=== PATIENT | male | born 1975 | race Caucasian/White ===

== ENCOUNTER 2017-06-19 08:49 | Emergency (ER) | payer OTHER ==
[2017-06-19 08:50] VITALS: BMI 27.2
[2017-06-19 08:55] VITALS: RESP 17; TEMP 98.7
--- NOTE | 2017-06-19 09:12 | ED PDOC ---
Arrival/HPI - General Chief Complaint: ENT Problem Time Seen by Provider: 06/19/17 09:10 Historian: Patient - History of Present Illness Narrative History of Present Illness (Text): 06/19/17 09:13 Fuentes Shell is a 41 year old male, who presents to the emergency department complaining of a sore throat for the past 3 days. Additionally patient complaints of subjective fever. Patient denies any shortness of breath, chest pain or other complaints. Time/Duration: < week (3 days) Symptom Onset: Sudden Past Medical History - Provider Review Nursing Documentation Reviewed: Yes - Past History Past History: No Previous - Infectious Disease Hx of Infectious Diseases: None - Tetanus Immunization Tetanus Immunization: Unknown - Past Medical History Past Medical History: No Previous - Cardiac Hx Cardiac Disorders: Yes - Pulmonary Hx Respiratory Disorders: No - Neurological Hx Neurological Disorder: No - HEENT Hx HEENT Disorder: No - Renal Hx Renal Disorder: No - Endocrine/Metabolic Hx Endocrine Disorders: No - Hematological/Oncological Hx Blood Disorders: No - Integumentary Hx Dermatological Disorder: No - Musculoskeletal/Rheumatological Hx Musculoskeletal Disorders: No - Gastrointestinal Hx Gastrointestinal Disorders: No - Genitourinary/Gynecological Hx Genitourinary Disorders: No - Psychiatric Hx Psychophysiologic Disorder: No Hx Depression: No Hx Emotional Abuse: No Hx Physical Abuse: No Hx Substance Use: No - Past Surgical History Past Surgical History: No Previous - Surgical History Hx Appendectomy: Yes (@17 years old) - Anesthesia Hx Anesthesia: Yes Hx Anesthesia Reactions: No Hx Malignant Hyperthermia: No - Suicidal Assessment Feels Threatened In Home Enviroment: No Family/Social History - Physician Review Nursing Documentation Reviewed: Yes Family/Social History: Unknown Family HX Smoking Status: Never Smoked Hx Alcohol Use: No Hx Substance Use: No Allergies/Home Meds Allergies/Adverse Reactions: Allergies No Known Allergies Allergy (Verified 06/19/17 08:55) Home Medications: Home Meds Medication Instructions Recorded Confirmed Azithromycin [Zithromax] 500 mg PO DAILY 06/19/17 06/19/17 Loratadine [Claritin] 10 mg PO DAILY PRN 06/19/17 06/19/17 Review of Systems - Review of Systems Constitutional: Fevers ENT: Sore Throat Respiratory: absent: SOB Cardiovascular: absent: Chest Pain Gastrointestinal: absent: Abdominal Pain Physical Exam - Physical Exam Narrative Physical Exam (Text): 06/19/17 Constitutional: No acute distress. Head: Normocephalic. Atraumatic. Eyes: PERRL. ENT: Moist mucous membranes. Erythematous pharynx. +Exudates. Neck: Supple. No nuchal rigidity. Cardiovascular: Regular rate. Chest: No tenderness. Respiratory: Clear to auscultation bilaterally. No stridor. GI: Soft. Nontender. Nondistended. Back: No CVA tenderness. Musculoskeletal: No tenderness or swelling of extremities. Skin: No rash. Neurologic: Alert, no focal deficit. Vital Signs Reviewed: Yes Vital Signs Temp Pulse Resp BP Pulse Ox 06/19/17 08:53 98.7 F 92 H 17 109/71 100 Temperature: Afebrile Blood Pressure: Normal Pulse: Regular Respiratory Rate: Normal Appearance: Positive for: Well-Appearing, Non-Toxic, Comfortable Pain Distress: None Mental Status: Positive for: Alert and Oriented X 3 Medical Decision Making ED Course and Treatment: 06/19/17 Impression: 41 year old male with erythematous pharynx. Patient is afebrile. Plan: -- Amoxicillin, Decadron, and Toradol -- Reassess and disposition Progress Notes: Reevaluation: On reevaluation the patient feels better and is in no acute distress. I have discussed the results and plan with the patient, who expresses understanding. Patient given the opportunity to ask question, all questions were answered and there is agreement with the plan to discharge the patient home. Patient is stable for discharge. Patient was instructed to follow up with physician/clinic in 1-2 days or return if symptoms persist/worsen or new concerning symptoms arise. - Lab Interpretations I have reviewed the lab results: Yes - Medication Orders Current Medication Orders: Discontinued Medications Amoxicillin (Amoxil 500 Mg Cap) 1,000 mg PO STAT STA PRN Reason: Protocol Stop: 06/19/17 09:13 Last Admin: 06/19/17 09:21 Dose: 1,000 mg Dexamethasone (Decadron Inj) 10 mg IM STAT STA Stop: 06/19/17 09:13 Last Admin: 06/19/17 09:22 Dose: 10 mg IM Administration Charges Document 06/19/17 09:22 SF (Rec: 06/19/17 09:22 SF [email or web address] Injection Site MAR Injection Site Left Deltoid Charges for Administration # of IM Administrations 1 Ketorolac Tromethamine (Toradol) 60 mg IM STAT STA Stop: 06/19/17 09:13 Last Admin: 06/19/17 09:22 Dose: 60 mg MAR Pain Assessment Document 06/19/17 09:22 SF (Rec: 06/19/17 09:22 SF [email or web address] Pain Reassessment Is this a pain reassessment? Yes Sleep Is patient sleeping during reassessment? No Location Pain Location Body Site Throat IM Administration Charges Document 06/19/17 09:22 SF (Rec: 06/19/17 09:22 SF [email or web address] Injection Site MAR Injection Site Right Deltoid Charges for Administration # of IM Administrations 1 - Scribe Statement The provider has reviewed the documentation as recorded by the Chin Issa Provider Scribe Attestation: All medical record entries made by the Scribe were at my direction and personally dictated by me. I have reviewed the chart and agree that the record accurately reflects my personal performance of the history, physical exam, medical decision making, and the department course for this patient. I have also personally directed, reviewed, and agree with the discharge instructions and disposition. Disposition/Present on Arrival - Present on Arrival Any Indicators Present on Arrival: No History of DVT/PE: No History of Uncontrolled Diabetes: No Urinary Catheter: No History of Decub. Ulcer: No History Surgical Site Infection Following: None - Disposition Have Diagnosis and Disposition been Completed?: Yes Diagnosis: Strep throat Disposition: HOME/ ROUTINE Disposition Time: 09:10 Patient Plan: Discharge Patient Problems: Current Active Problems Problem Status Onset Strep throat Acute Condition: STABLE Discharge Instructions (ExitCare): Strep Throat (ED) Prescriptions: Amoxicillin 875 mg PO BID #19 tablet Dexamethasone [Decadron] 5 tab PO ONCE #5 tab Ibuprofen [Motrin] 600 mg PO Q6 #25 tab Referrals: PCP,NO [Primary Care Provider] - Follow up with primary Forms: [facility] (German), WORK NOTE
[2017-06-19 10:19] VITALS: BP 111/75; PULSE 91; O2SAT 98
== END 2017-06-19 09:50 | disposition home or self-care (01) ==
LOC: ED 08:49
DX: J02.0 Streptococcal pharyngitis (principal)
CPT/HCPCS: 96372; 99283; J1100; J1885

== ENCOUNTER 2017-10-29 05:36 | Emergency (ER) | payer OTHER ==
[2017-10-29 05:48] VITALS: RESP 18; TEMP 98.2
[2017-10-29 05:51] VITALS: BMI 28.7
--- NOTE | 2017-10-29 06:00 | ED PDOC ---
Arrival/HPI - General Chief Complaint: Chest Pain Time Seen by Provider: 10/29/17 05:52 Historian: Patient - History of Present Illness Narrative History of Present Illness (Text): 10/29/17 05:57 42 year old male, with no significant past medical history, presents to the emergency department complaining of intermittent chest pain that began yesterday and again this morning after waking up. Patient finds it difficult to describe the quality. Patient point to the left side of his chest, but denies any radiation, or associated shortness of breath. He denies any cardiac family history, any history of exertional chest pain, or dyspnea on exertion. Patient denies any fever, chills, shortness of breath, abdominal pain, nausea, vomiting , diarrhea, urinary symptoms, back pain, neck pain, headache, dizziness, or any other complaints. Time/Duration: 24 hours Symptom Course: Intermittent Activities at Onset: Light Context: Home Past Medical History - Provider Review Nursing Documentation Reviewed: Yes - Past History Past History: No Previous - Infectious Disease Hx of Infectious Diseases: None - Tetanus Immunization Tetanus Immunization: Unknown - Past Medical History Past Medical History: No Previous - Cardiac Hx Cardiac Disorders: No - Pulmonary Hx Respiratory Disorders: No - Neurological Hx Neurological Disorder: No - HEENT Hx HEENT Disorder: No - Renal Hx Renal Disorder: No - Endocrine/Metabolic Hx Endocrine Disorders: No - Hematological/Oncological Hx Blood Disorders: No - Integumentary Hx Dermatological Disorder: No - Musculoskeletal/Rheumatological Hx Musculoskeletal Disorders: No - Gastrointestinal Hx Gastrointestinal Disorders: No - Genitourinary/Gynecological Hx Genitourinary Disorders: No - Psychiatric Hx Psychophysiologic Disorder: No Hx Depression: No Hx Emotional Abuse: No Hx Physical Abuse: No Hx Substance Use: No - Past Surgical History Past Surgical History: No Previous - Surgical History Hx Appendectomy: Yes (@17 years old) - Anesthesia Hx Anesthesia: Yes Hx Anesthesia Reactions: No Hx Malignant Hyperthermia: No - Suicidal Assessment Feels Threatened In Home Enviroment: No Family/Social History - Physician Review Nursing Documentation Reviewed: Yes Family/Social History: No Known Family HX. denies: CAD/AL Smoking Status: Never Smoked Hx Alcohol Use: No Hx Substance Use: No Allergies/Home Meds Allergies/Adverse Reactions: Allergies No Known Allergies Allergy (Verified 06/19/17 08:55) Home Medications: Home Meds Medication Instructions Recorded Confirmed No Known Home Med 10/29/17 10/29/17 Review of Systems - Physician Review All systems were reviewed & negative as marked: Yes - Review of Systems Constitutional: absent: Fevers, Other (Chills) Respiratory: absent: SOB Cardiovascular: Chest Pain. absent: DC Gastrointestinal: absent: Abdominal Pain, Diarrhea, Nausea, Vomiting Genitourinary Male: absent: Dysuria, Frequency, Hematuria Musculoskeletal: absent: Back Pain, Neck Pain Neurological: absent: Headache, Dizziness Physical Exam Vital Signs Reviewed: Yes Vital Signs Temp Pulse Resp BP Pulse Ox 10/29/17 05:48 98.2 F 80 18 115/62 95 Temperature: Afebrile Blood Pressure: Normal Pulse: Regular Respiratory Rate: Normal Appearance: Positive for: Well-Appearing, Non-Toxic, Comfortable Pain Distress: None Mental Status: Positive for: Alert and Oriented X 3 - Systems Exam Head: Present: Atraumatic, Normocephalic Pupils: Present: PERRL Extroacular Muscles: Present: EOMI Conjunctiva: Present: Normal Mouth: Present: Moist Mucous Membranes Neck: Present: Normal Range of Motion. No: Meningeal Signs, MIDLINE TENDERNESS , Paraspinal Tenderness Respiratory/Chest: Present: Clear to Auscultation, Good Air Exchange. No: Respiratory Distress, Accessory Muscle Use Cardiovascular: Present: Regular Rate and Rhythm, Normal S1, S2. No: Murmurs Abdomen: Present: Normal Bowel Sounds. No: Tenderness, Distention, Peritoneal Signs Back: Present: Normal Inspection Upper Extremity: Present: Normal Inspection. No: Cyanosis, Edema Lower Extremity: Present: Normal Inspection. No: Edema Neurological: Present: GCS=15, CN II-XII Intact, Speech Normal Skin: Present: Warm, Dry, Normal Color. No: Rashes Psychiatric: Present: Alert, Oriented x 3, Normal Insight, Normal Concentration Medical Decision Making ED Course and Treatment: 10/29/17 06:02 Impression: 42 year old male presents complaining of intermittent chest pain that began yesterday and again this morning after waking up. Plan: -- Labs -- EKG -- Chest X-ray -- Aspirin -- Reassess and disposition Progress Notes: 10/29/17 06:44 CXR Impression: As read by me, no acute process. EKG shows NSR at 81 BPM with no acute changes. Interpreted by me. 10/29/17 06:59 Recommended admission to the patient but refused to stay.Understands risks as explained including the possibility of undiagnosed cardia disease.Pt. to sign out against medical advice, - Lab Interpretations Lab Results: 10/29/17 06:10 10/29/17 06:10 Lab Results 10/29/17 06:10: PT 10.7, INR 0.93, APTT 27.7, D-Dimer, Quantitative < 200 10/29/17 06:10: WBC 5.2, RBC 4.62, Hgb 14.0, Hct 42.0, MCV 90.9, MCH 30.3, MCHC 33.3, RDW 13.5, Plt Count 176, MPV 10.0 10/29/17 06:10: Sodium 140, Potassium 3.7, Chloride 104, Carbon Dioxide 28, Anion Gap 12, BUN 16, Creatinine 0.8, Est GFR ( Amer) > 60, Est GFR (Non- Af Amer) > 60, Random Glucose 157 H, Calcium 9.3, Total Bilirubin 0.3, AST 25, ALT 37, Alkaline Phosphatase 36 L, Lactate Dehydrogenase 342, Total Creatine Kinase 168, Troponin I < 0.01, Total Protein 7.0, Albumin 3.9, Globulin 3.1, Albumin/Globulin Ratio 1.2 I have reviewed the lab results: Yes - RAD Interpretation Radiology Orders: 10/29/17 06:04 CHEST PORTABLE [RAD] Stat - EKG Interpretation Interpreted by ED Physician: Yes Type: 12 lead EKG - Medication Orders Current Medication Orders: Discontinued Medications Aspirin (Aspirin) 325 mg PO ONCE STA Stop: 10/29/17 06:06 Last Admin: 10/29/17 06:20 Dose: 325 mg - Gianlucaibe Statement The provider has reviewed the documentation as recorded by the Chin Gaming Provider Luise Attestation: All medical record entries made by the Chin were at my direction and personally dictated by me. I have reviewed the chart and agree that the record accurately reflects my personal performance of the history, physical exam, medical decision making, and the department course for this patient. I have also personally directed, reviewed, and agree with the discharge instructions and disposition. Disposition/Present on Arrival - Present on Arrival Any Indicators Present on Arrival: No History of DVT/PE: No History of Uncontrolled Diabetes: No Urinary Catheter: No History of Decub. Ulcer: No History Surgical Site Infection Following: None - Disposition Have Diagnosis and Disposition been Completed?: Yes Diagnosis: Atypical chest pain Disposition: AGAINST MEDICAL ADVICE Disposition Time: 06:55 Patient Plan: Discharge Condition: STABLE Discharge Instructions (ExitCare): Chest Pain (ED) Additional Instructions: Follow up with your doctor this week/return if any recurrent symptoms Forms: [facility] (Azerbaijani), WORK NOTE
[2017-10-29 06:29] LABS: MEAN CELL VOLUME 90.9 fl (80.0-105.0); MEAN CORPUSCULAR HEMOGLOBIN 30.3 pg (25.0-35.0); MEAN CORPUSCULAR HGB CONC 33.3 g/dl (31.0-37.0); RBC 4.62 10^6/uL (3.5-6.1); RED CELL DISTRIBUTION WIDTH 13.5 % (11.5-14.5); WHITE BLOOD COUNT 5.2 10^3/ul (4.5-11.0)
[2017-10-29 06:39] LABS: ALB/GLOB RATIO 1.2 (1.1-1.8); ALBUMIN 3.9 g/dL (3.0-4.8); ALT/SGPT 37 U/L (7-56); AST/SGOT 25 U/L (17-59); BLOOD UREA NITROGEN 16 mg/dL (7-21); CALCIUM 9.3 mg/dL (8.4-10.5); GFR AFRICAN-AMERICAN > 60; GFR NON-AFRICAN AMERICAN > 60
[2017-10-29 06:46] LABS: INR 0.93 (0.93-1.08); PROTHROMBIN TIME 10.7 SECONDS (9.4-12.5)
[2017-10-29 06:47] LABS: D DIMER < 200 ng/mL (0-243); PARTIAL THROMBOPLASTIN TIME 27.7 Seconds (25.1-36.5)
[2017-10-29 06:50] LABS: TROPONIN I < 0.01 ng/mL
[2017-10-29 07:08] VITALS: BP 118/76; PULSE 72; O2SAT 99
--- NOTE | 2017-10-29 08:18 | RAD ---
HISTORY: chest pain COMPARISON: 01/17/2016 FINDINGS: LUNGS: No active pulmonary disease. PLEURA: No significant pleural effusion identified, no pneumothorax apparent. CARDIOVASCULAR: Normal. OSSEOUS STRUCTURES: No significant abnormalities. VISUALIZED UPPER ABDOMEN: Normal. OTHER FINDINGS: None. IMPRESSION: No active disease.
--- NOTE | 2017-10-29 10:09 | CARD ---
APPROVED REPORT EKG Measurement Heart [id number] <Conclusion> Normal sinus rhythm Normal ECG
== END 2017-10-29 07:15 | disposition left against medical advice (07) ==
LOC: ED 05:36
DX: R07.89 Other chest pain (principal)